=== PATIENT | male | born 1965 | race Two or more races ===

== ENCOUNTER 2024-05-22 10:11 | Outpatient (CLI) | payer OTHER | END 2024-05-22 10:13 | disposition home or self-care (01) | LOC: SONOGRAMA 10:11 | PROVIDERS: ATTEND Pathology Anatomic Pathology | DX: E04.1 Nontoxic single thyroid nodule (principal); D34 Benign neoplasm of thyroid gland; E07.89 Other specified disorders of thyroid ==